=== PATIENT | male | born 1985 | race Caucasian/White ===

== ENCOUNTER 2018-07-25 21:19 | Emergency (ER) | payer OTHER ==
[~2018-07-25] VITALS: Ht 165.1 cm; Wt 119.5 kg
[2018-07-25] MEDS ORDERED: BACITRACIN 0.9 GM PACKET OINTMENT TP ONE (22:15)
[2018-07-25] MEDS ORDERED: RABIES IMMUNE GLOBULIN/THIMER 150 UNITS/ML 10 ML VIAL IM ONE (22:15)
[2018-07-25] MEDS ORDERED: PERTUSS(ACELL),DIPH,TET VAC/PF 0.5 ML VIAL IM ONE (22:15)
[2018-07-25] MEDS ORDERED: RABIES VAC,PF CHICK-EMB CELL 2.5 UNITS/ML SYRINGE IM ONE (22:15)
[2018-07-25 23:53] VITALS: BP 122/70
== END 2018-07-26 00:01 | disposition home or self-care (01) ==
LOC: EMS 21:20
DX: S81.852A Open bite, left lower leg, initial encounter (principal); E11.9 Type 2 diabetes mellitus without complications; I11.9 Hypertensive heart disease without heart failure; W54.0XXA Bitten by dog, initial encounter; Y93.89 Activity, other specified; Y92.89 Other specified places as the place of occurrence of the external cause; Y99.8 Other external cause status
CPT/HCPCS: 90375; 90471; 90472; 90675; 90715; 96372; 99284

== ENCOUNTER 2018-07-28 21:26 | Emergency (ER) | payer OTHER ==
[~2018-07-28] VITALS: Ht 165.1 cm; Wt 119.0 kg
[2018-07-28 22:08] VITALS: BP 140/81
[2018-07-28] MEDS ORDERED: RABIES VAC,PF CHICK-EMB CELL 2.5 UNITS/ML SYRINGE IM ONE (22:15)
== END 2018-07-28 23:08 | disposition home or self-care (01) ==
LOC: EMS 21:27
DX: Z23 Encounter for immunization (principal)
CPT/HCPCS: 90471; 90675; 99283

== ENCOUNTER 2018-08-01 18:22 | Emergency (ER) | payer OTHER ==
[~2018-08-01] VITALS: Ht 165.1 cm; Wt 125.0 kg
[2018-08-01 20:00] VITALS: BP 136/89
[2018-08-01] MEDS ORDERED: RABIES VAC,PF CHICK-EMB CELL 2.5 UNITS/ML SYRINGE IM ONE (20:00)
== END 2018-08-01 20:30 | disposition home or self-care (01) ==
LOC: EMS 18:24
DX: Z29.14 Encounter for prophylactic rabies immune globulin (principal)
CPT/HCPCS: 90471; 90675; 99283